=== PATIENT | female | born 1990 | race African-American/Black ===

== ENCOUNTER 2020-10-27 00:22 | Emergency (ER) | payer OTHER, MEDICAID ==
[~2020-10-27] VITALS: Ht 180.3 cm; Wt 86.2 kg
[2020-10-27 00:30] VITALS: BP 130/83
[2020-10-27] MEDS ORDERED: KEFLEX250 MG PO (00:37)
== END 2020-10-27 00:45 | disposition home or self-care (01) ==
LOC: M.ERS 00:22
DX: L60.8 Other nail disorders (principal)